=== PATIENT | female | born 1960 | race Caucasian/White ===

== ENCOUNTER 2023-02-26 08:20 | Day surgery (SDC) | payer OTHER ==
[~2023-02-26 08:20] MED LIST: Midazolam 1 MG/ML 2 ML SDV ONE; Propofol 200 MG/20 ML SDV ONE; fentaNYL 50 MCG/ML SDV ONE
[2023-02-26] MEDS ORDERED: Lactated Ringers 1,000 ML IV SCH (09:00)
[2023-02-26] MEDS ORDERED: Propofol 200 MG/20 ML SDV ONE (10:22)
== END 2023-02-26 11:50 | disposition home or self-care (01) ==
LOC: JP.SDS 08:20
PROVIDERS: ATTEND Student in an Organized Health Care Education/Training Program
DX: Z12.11 Encounter for screening for malignant neoplasm of colon (principal); K57.30 Diverticulosis of large intestine without perforation or abscess without bleeding; I10 Essential (primary) hypertension; E78.00 Pure hypercholesterolemia, unspecified; Z88.8 Allergy status to other drugs, medicaments and biological substances
CPT/HCPCS: 45378; J2250; J2704; J3010; J7120